=== PATIENT | male | born 1995 | race Caucasian/White ===

== ENCOUNTER 2017-02-25 12:03 | Emergency (ER) | payer OTHER ==
[~2017-02-25] VITALS: Ht 175.3 cm; Wt 65.9 kg
[~2017-02-25 12:03] MED LIST: [UNRECOGNIZED DRUG - REMARK]
[2017-02-25] MEDS ORDERED: OMEP20CA10 PO (12:13)
[2017-02-25 13:38] VITALS: BP 126/69
== END 2017-02-25 13:43 | disposition home or self-care (01) ==
LOC: EMS 12:06
DX: M79.644 Pain in right finger(s) (principal); M79.89 Other specified soft tissue disorders
CPT/HCPCS: 99284

== ENCOUNTER 2017-04-28 10:54 | Emergency (ER) | payer OTHER ==
[~2017-04-28] VITALS: Ht 175.3 cm; Wt 65.9 kg
[~2017-04-28 10:54] MED LIST changes: +OMEP20CA10 PO; -[UNRECOGNIZED DRUG - REMARK]
[2017-04-28] MEDS ORDERED: IBUP-2070 PO (11:04)
[2017-04-28] MEDS ORDERED: IBUPROFEN 800 MG TABLET ONE (12:43)
[2017-04-28] MEDS ORDERED: IBUPROFEN 800 MG TABLET PO ONE (12:45)
[2017-04-28 12:48] VITALS: BP 111/63
== END 2017-04-28 13:24 | disposition home or self-care (01) ==
LOC: EMS 10:55
DX: S83.92XA Sprain of unspecified site of left knee, initial encounter (principal); W19.XXXA Unspecified fall, initial encounter; Y93.66 Activity, soccer; Y92.89 Other specified places as the place of occurrence of the external cause; Y99.8 Other external cause status
CPT/HCPCS: 29505; 99284

== ENCOUNTER 2018-01-13 11:41 | Emergency (ER) | payer OTHER ==
[~2018-01-13] VITALS: Ht 175.3 cm; Wt 74.1 kg
[~2018-01-13 11:41] MED LIST changes: +IBUP-2070 PO; -OMEP20CA10 PO
[2018-01-13] MEDS ORDERED: OMEP10 PO (11:48)
[2018-01-13] MEDS ORDERED: IBUPROFEN 800 MG TABLET PO ONE (12:30)
[2018-01-13 13:30] VITALS: BP 139/88
== END 2018-01-13 13:43 | disposition home or self-care (01) ==
LOC: EMS 11:42
DX: S83.91XA Sprain of unspecified site of right knee, initial encounter (principal); X50.1XXA Overexertion from prolonged static or awkward postures, initial encounter; Y93.89 Activity, other specified; Y92.89 Other specified places as the place of occurrence of the external cause; Y99.8 Other external cause status
CPT/HCPCS: 99284

== ENCOUNTER 2021-09-02 12:14 | Emergency (ER) | payer OTHER ==
[~2021-09-02] VITALS: Ht 175.3 cm; Wt 77.3 kg
[~2021-09-02 12:14] MED LIST changes: -IBUP-2070 PO; +OMEP10 PO
[2021-09-02 12:23] VITALS: BP 144/67
[2021-09-02] MEDS ORDERED: IBUPROFEN 600 MG TABLET PO ONE (13:45)
== END 2021-09-02 16:12 | disposition home or self-care (01) ==
LOC: EMS 12:20
DX: S86.812A Strain of other muscle(s) and tendon(s) at lower leg level, left leg, initial encounter (principal); M25.572 Pain in left ankle and joints of left foot; X50.0XXA Overexertion from strenuous movement or load, initial encounter; Y93.89 Activity, other specified; Y92.89 Other specified places as the place of occurrence of the external cause; Y99.8 Other external cause status
CPT/HCPCS: 99284; 73562-TC; 73610-TC; Z7502; Z7610

== ENCOUNTER 2023-12-31 17:32 | Emergency (ER) | payer OTHER ==
[~2023-12-31] VITALS: Ht 175.3 cm; Wt 84.1 kg
[~2023-12-31 17:32] MED LIST changes: -OMEP10 PO; +OMEP10CA38 PO
[2023-12-31 17:33] VITALS: TEMP 98.7
[2023-12-31 20:49] VITALS: BP 130/95; PULSE 91; RESP 16
== END 2023-12-31 22:13 | disposition home or self-care (01) ==
LOC: EMS 17:36
DX: S00.502A Unspecified superficial injury of oral cavity, initial encounter (principal); H91.93 Unspecified hearing loss, bilateral; Z98.890 Other specified postprocedural states; X58.XXXA Exposure to other specified factors, initial encounter; Y93.89 Activity, other specified; Y92.89 Other specified places as the place of occurrence of the external cause; Y99.8 Other external cause status
CPT/HCPCS: 99281; Z7502